=== PATIENT | female | born 1955 | race Two or more races ===

== ENCOUNTER 2023-04-04 20:28 | Emergency (ER) | payer OTHER ==
[~2023-04-04] VITALS: Ht 167.6 cm; Wt 113.4 kg
[2023-04-04] MEDS ORDERED: GLUMETZA500 MG PO (20:31)
[2023-04-04] MEDS ORDERED: COZAAR100 MG PO (20:32)
[2023-04-04] MEDS ORDERED: LEVOTHYROXINE25 MCG PO (20:32)
[2023-04-04] MEDS ORDERED: IPRATROPIUM BROMIDE 0.5 MG/2.5 ML AMPUL.NEB IH ONE (21:45)
[2023-04-04] MEDS ORDERED: LEVALBUTEROL HCL 0.63 MG/3 ML SOLUTION IH ONE (21:45)
[2023-04-04] MEDS ORDERED: GUAIFENESIN 200 MG/10 ML BLIST.PACK PO ONE (21:45)
[2023-04-04] MEDS ORDERED: METHYLPREDNISOLONE SOD SUCC 40 MG VIAL IM ONE (22:00)
[2023-04-04 22:33] LABS: HEMATOCRIT 39.2 % (36.0-45.00); HEMOGLOBIN 12.8 g/dL (12.0-15.00); MEAN CELL VOLUME 84.4 fL (80.00-100.00); MEAN CORPUSCULAR HEMOGLOBIN 27.6 pg (27.00-32.0); MEAN CORPUSCULAR HGB CONC 32.8 g/dl (32.0-36.0); PLATELET COUNT 259 K/uL (150-450); RED BLOOD COUNT 4.65 M/uL (4.00-6.00); RED CELL DISTRIBUTION WIDTH 13.9 % (11.5-14.5)
== END 2023-04-05 00:35 | disposition home or self-care (01) ==
LOC: ER 20:28
PROVIDERS: General Practice
DX: J45.901 Unspecified asthma with (acute) exacerbation (principal); J00 Acute nasopharyngitis [common cold]; R05.9 Cough, unspecified; Z20.822 Contact with and (suspected) exposure to COVID-19; I10 Essential (primary) hypertension; E03.8 Other specified hypothyroidism; E11.9 Type 2 diabetes mellitus without complications; Z79.84 Long term (current) use of oral hypoglycemic drugs
CPT/HCPCS: 36415; 71045; 94640; 96372; 99283; J3490

== ENCOUNTER 2024-05-26 15:53 | Emergency (ER) | payer OTHER ==
[~2024-05-26] VITALS: Ht 160 cm; Wt 90.7 kg
[~2024-05-26 15:53] MED LIST: COZAAR100 MG PO; GLUMETZA500 MG PO; LEVOTHYROXINE25 MCG PO
[2024-05-26 18:44] LABS: ABG PO2 85.6 mmHg (80-100); ABG pCO2 29.8 mmHg (35-45); BASE EXCESS -1.3 mmol/l; BICARBONATE 21.2 mmol/l (23-25); SaO2 97.1 %; Tco2 22.1 mmol/l
[2024-05-26] MEDS ORDERED: 0.9 % SODIUM CHLORIDE 500 ML IV STA (18:47)
[2024-05-26 18:58] LABS: INR 0.95; PARTIAL THROMBOPLASTIN TIME 20.1 SECONDS (22.0-34.0); PROTHROMBIN TIME 10.4 SECONDS (9.0-11.5)
[2024-05-26 19:14] LABS: CALCIUM 9.9 mg/dL (8.5-10.1); CREATININE SERUM 1.42 mg/dL (0.55-1.02); GFR 36.68; POTASSIUM 3.23 mEq/L (3.5-5.1)
[2024-05-26 19:47] LABS: HEMATOCRIT 38.6 % (36.0-45.00); HEMOGLOBIN 12.8 g/dL (12.0-15.00); MEAN CELL VOLUME 87.2 fL (80.00-100.00); MEAN CORPUSCULAR HEMOGLOBIN 28.9 pg (27.00-32.0); MEAN CORPUSCULAR HGB CONC 33.1 g/dl (32.0-36.0); PLATELET COUNT 304 K/uL (150-450); RED BLOOD COUNT 4.43 M/uL (4.00-6.00); RED CELL DISTRIBUTION WIDTH 13.9 % (11.5-14.5)
[2024-05-26 19:53] LABS: allen test SATISFACTORY; o2 21 %; puncture site RADIAL LEFT
[2024-05-26] MEDS ORDERED: CEFTRIAXONE SODIUM 2,000 MG in 0.9 % SODIUM CHLORIDE 100 ML IV ONE (21:15)
[2024-05-26] MEDS ORDERED: CEFTRIAXONE SODIUM 2,000 MG VIAL ONE (21:23)
== END 2024-05-26 22:19 | disposition designated cancer center or children's hospital (05) ==
LOC: ER 15:53
PROVIDERS: Emergency Medicine
DX: R53.81 Other malaise (principal); I48.91 Unspecified atrial fibrillation; R06.02 Shortness of breath; I50.9 Heart failure, unspecified; L03.115 Cellulitis of right lower limb; J44.9 Chronic obstructive pulmonary disease, unspecified; Z20.822 Contact with and (suspected) exposure to COVID-19
CPT/HCPCS: 36415; 71045; 82803; 93005; 93041; 96365; 99283; J0696